=== PATIENT | male | born 1950 | race Caucasian/White ===

== ENCOUNTER → 2020-10-02 | Day surgery (SDC) | payer MEDICARE ==
[~2020-10-02] VITALS: Ht 180.3 cm; Wt 90.7 kg
[~2020-10-02] MED LIST: COZAAR50 MG PO; FOLIC ACID1 MG PO; PEPCID AC20 MG PO; PROBIOTIC1 EAC1 PO; PROTONIX20 MG PO; TAMSULOSIN HCL0.4 MG PO; ZANTAC150 MG PO; ZOCOR20 MG PO
[2020-10-02 08:23] LABS: HCT 39.9 % (42.0-52.0); HGB 12.4 g/dl (13.2-18.0); MCH 24.6 pg (25.0-31.0); MCHC 31.1 g/dL (32.0-36.0); MCV 79.2 fL (78.0-100.0); MPV 9.1 fL (6.0-9.5); PLT 190 K/uL (150-400); RBC 5.04 M/uL (4.70-6.00); WBC 3.3 K/uL (4.0-10.5)
[2020-10-02 08:31] LABS: ALBUMIN 3.6 g/dL (3.4-5.0); BILIRUBIN - TOTAL 0.6 mg/dL (0.2-1.0); CREATININE 0.91 mg/dL (0.67-1.17); TOTAL PROTEIN 6.6 g/dL (6.4-8.2)
== END | disposition home or self-care (01) ==
LOC: FAS 07:25
PROVIDERS: Surgery
DX: K21.00 Gastro-esophageal reflux disease with esophagitis, without bleeding (principal); K57.30 Diverticulosis of large intestine without perforation or abscess without bleeding; K44.9 Diaphragmatic hernia without obstruction or gangrene; K29.50 Unspecified chronic gastritis without bleeding; D64.9 Anemia, unspecified; I10 Essential (primary) hypertension; F17.210 Nicotine dependence, cigarettes, uncomplicated; G47.30 Sleep apnea, unspecified; Z90.49 Acquired absence of other specified parts of digestive tract; Z91.013 Allergy to seafood; Z79.899 Other long term (current) drug therapy; Z82.49 Family history of ischemic heart disease and other diseases of the circulatory system; Z20.822 Contact with and (suspected) exposure to COVID-19
CPT/HCPCS: 36415; 80053; J2250; J2704; J7120